=== PATIENT | male | born 1975 | race African-American/Black ===

== ENCOUNTER 2016-11-19 12:32 | Observation (INO) | payer SELFPAY ==
[2016-11-19] VITALS (7 sets, daily range): BP systolic 104–128; BP diastolic 70–81; PULSE 54–95; RESP 16–20; TEMP 97.9–98.3; O2SAT 96–100
[~2016-11-19] VITALS: Ht 177.8 cm; Wt 75.0 kg
--- NOTE | 2016-11-19 12:38 | PD ---
Physical Exam Time Seen by Provider: 12:37 Narrative 41 y/o male presents for evaluation of a syncopal event today. Associated squeezing chest pain prior to the event. Vital signs reviewed. Seen at triage desk. Awaiting bed placement. Data Data Last Documented VS Vital Signs Date Time Temp Pulse Resp B/P Pulse Ox O2 Delivery O2 Flow Rate FiO2 11/19/16 12:35 98.3 95 17 120/70 99 MDM Medical Record Reviewed: Yes Supervised Visit with ERNESTO: No Scripts No Active Prescriptions or Reported Meds Boy Barcenas November 19, 2016 12:38
[2016-11-19] MEDS ORDERED: SODIUM CHLORIDE 0.9% FLUSH 10 ML FLUSH IVF PRN (13:30)
--- NOTE | 2016-11-19 13:33 | PD ---
HPI Chief Complaint: Syncope/Near-Syncope Time Seen by Provider: 13:29 Travel History International Travel<30 days: No Contact w/Intl Traveler<30days: No Traveled to known affect area: No History of Present Illness HPI Patient comes in complaining of a syncopal episode that occurred was at work. Patient states he was sitting on on a brick wall approximately 2 feet off the ground when he felt a pressure/squeezing in his chest and he woke up on the ground. This was witnessed by coworkers. Patient has anything like this in the past. Denies any known heart disease or other medical problems. Patient does report that he does smoke and drink alcohol and over the weekend did a line of cocaine. Patient denies doing drugs on a regular basis. Patient denies taking anything for this. Denies being on any blood thinners. Patient reports the squeezing pain in his chest comes and goes. Patient reports associated shortness of breath squeezing pain comes and having a headache since waking up from initial syncopal episode. Denies any dizziness, nausea, vomiting , change in vision, neck pain, numbness or tingling anywhere, abdominal pain, or fevers. PFSH Past Medical History Asthma: Yes Blood Disorders: No Cancer: No Cardiovascular Problems: No Diminished Hearing: No Endocrine: No Gastrointestinal Disorders: Yes (GI BLEED) Genitourinary: No Hypertension: Yes (diag every time in hosp not on meds) Immune Disorder: No Implanted Vascular Access Dvce: No Musculoskeletal: No Neurologic: No Reproductive: No Immunizations Current: No Pancreatitis: Yes Tetanus Vaccination: > 5 Years Influenza Vaccination: No Past Surgical History Surgical History: No Previous Surgery Tonsillectomy: Yes Other Surgery: No Social History Alcohol Use: Yes Tobacco Use: Yes (1 pack a day) Substance Use: Yes (cocaine this past sat 11/15/16) Allergies-Medications (Allergen,Severity, Reaction): Coded Allergies: No Known Allergies (Verified , 11/19/16) Reported Meds & Prescriptions Reported Meds & Active Scripts Active No Active Prescriptions or Reported Medications Review of Systems Except as stated in HPI: all other systems reviewed are Neg Physical Exam Narrative GENERAL: Well-developed, well nourished, in no acute distress, and non-ill appearing. SKIN: Focused skin assessment warm and dry. HEAD: Atraumatic. Normocephalic. EYES: Pupils equal and round. EOMI. No scleral icterus. No injection or drainage. ENT: No nasal bleeding or discharge. Mucous membranes pink and moist. NECK: Trachea midline. No JVD. Supple. No nuclear rigidity. CARDIOVASCULAR: Regular rate and rhythm. No murmur appreciated. RESPIRATORY: No accessory muscle use. No respiratory distress. Clear to auscultation. Breath sounds equal bilaterally. MUSCULOSKELETAL: No obvious deformities. No clubbing. No cyanosis. No edema. Full range of motion. NEUROLOGICAL: Awake and alert. No obvious cranial nerve deficits. Motor grossly within normal limits. Normal speech. PSYCHIATRIC: Appropriate mood and affect; insight and judgment normal. Data Data Last Documented VS Vital Signs Date Time Temp Pulse Resp B/P Pulse Ox O2 Delivery O2 Flow Rate FiO2 11/19/16 14:51 72 20 104/71 99 Room Air 11/19/16 12:35 98.3 Orders Electrocardiogram (11/19/16 ) Basic Metabolic Panel (Bmp) (11/19/16 13:26) Complete Blood Count With Diff (11/19/16 13:26) Magnesium (Mg) (11/19/16 13:26) Ckmb (Isoenzyme) Profile (11/19/16 13:26) Troponin I (11/19/16 13:26) Act Partial Throm Time (Ptt) (11/19/16 13:26) Prothrombin Time / Inr (Pt) (11/19/16 13:26) Chest, Single Ap (11/19/16 13:26) Ct Brain W/O Iv Contrast(Rout) (11/19/16 13:26) Ecg Monitoring (11/19/16 13:26) Iv Access Insert/Monitor (11/19/16 13:26) Oximetry (11/19/16 13:26) Sodium Chloride 0.9% Flush (Ns Flush) (11/19/16 13:30) D-Dimer (11/19/16 13:58) CKMB (11/19/16 13:37) CKMB% (11/19/16 13:37) Aspirin Chew (Aspirin Chew) (11/19/16 15:30) Admit Order (Ed Use Only) (11/19/16 15:53) Labs Laboratory Tests Test 11/19/16 13:37 White Blood Count 2.9 TH/MM3 Red Blood Count 4.34 MIL/MM3 Hemoglobin 14.1 GM/DL Hematocrit 41.2 % Mean Corpuscular Volume 95.0 FL Mean Corpuscular Hemoglobin 32.4 PG Mean Corpuscular Hemoglobin 34.1 % Concent Red Cell Distribution Width 14.0 % Platelet Count 208 TH/MM3 Mean Platelet Volume 7.7 FL Neutrophils (%) (Auto) 50.8 % Lymphocytes (%) (Auto) 39.1 % Monocytes (%) (Auto) 7.1 % Eosinophils (%) (Auto) 2.5 % Basophils (%) (Auto) 0.5 % Neutrophils # (Auto) 1.5 TH/MM3 Lymphocytes # (Auto) 1.1 TH/MM3 Monocytes # (Auto) 0.2 TH/MM3 Eosinophils # (Auto) 0.1 TH/MM3 Basophils # (Auto) 0.0 TH/MM3 CBC Comment DIFF FINAL Differential Comment Prothrombin Time 10.4 SEC Prothromb Time International 0.9 RATIO Ratio Activated Partial 23.4 SEC Thromboplast Time D-Dimer Quantitative (PE/DVT) LESS THAN 0.19 MG/L FEU Sodium Level 143 MEQ/L Potassium Level 4.3 MEQ/L Chloride Level 111 MEQ/L Carbon Dioxide Level 25.5 MEQ/L Anion Gap 7 MEQ/L Blood Urea Nitrogen 8 MG/DL Creatinine 0.98 MG/DL Estimat Glomerular Filtration 102 ML/MIN Rate Random Glucose 75 MG/DL Calcium Level 9.3 MG/DL Magnesium Level 2.5 MG/DL Total Creatine Kinase 371 U/L Creatine Kinase MB 2.3 NG/ML Creatine Kinase MB % 0.6 % Troponin I LESS THAN 0.02 NG/ML MDM Medical Decision Making Medical Screen Exam Complete: Yes Emergency Medical Condition: Yes Differential Diagnosis Acute coronary syndrome, atypical chest pain, syncope, PE, pneumonia, electrolyte abnormality, dehydration, other Narrative Course Patient was seen and examined. Initial laboratory radiology studies were obtained and reviewed. Patient is given a dose of aspirin. Discussed patient with Dr. Heck, recommends place patient on observation for further evaluation. Discussed all findings and plan care of with patient, who was agreeable for admission. All questions were answered. Patient was stable throughout ED course. Physician Communication Physician Communication [id number] Patino, who feels patient should be placed in the chest pain center. Diagnosis Primary Impression: Chest pain Qualified Code: R07.9 - Chest pain, unspecified type Admitting Information Admitting Physician Requests: Observation Scripts No Active Prescriptions or Reported Meds Condition: Stable Edwin Cruz November 19, 2016 13:33 Edwin Cruz November 19, 2016 13:33
[2016-11-19 13:55] LABS: AUTOMATED NEUTROPHIL # 1.5 TH/MM3 (1.8-7.7); BASOPHIL % 0.5 % (0.0-2.0); EOSINOPHIL # 0.1 TH/MM3 (0-0.4); EOSINOPHIL % 2.5 % (0.0-4.0); HEMATOCRIT 41.2 % (39.0-51.0); HEMO FLAGS DIFF FINAL; LYMPH % 39.1 % (9.0-44.0); LYMPHOCYTE # 1.1 TH/MM3 (1.0-4.8); MEAN CORPUSCULAR HEMOGLOBIN 32.4 PG (27.0-34.0); MEAN CORPUSCULAR HGB CONC 34.1 % (32.0-36.0); MONO % 7.1 % (0.0-8.0); NEUT % 50.8 % (16.0-70.0); PLATELET COUNT 208 TH/MM3 (150-450); RED BLOOD COUNT 4.34 MIL/MM3 (4.50-5.90); WHITE BLOOD COUNT 2.9 TH/MM3 (4.0-11.0)
--- NOTE | 2016-11-19 13:56 | RADRPT ---
EXAM DATE/TIME: 11/19/2016 13:34 [facility] COMPARISON: CHEST PA & LAT, December 18, 2015, 12:28. INDICATIONS : Short of breath, chest tightness. MEDICAL HISTORY : Myocardial infarction. SURGICAL HISTORY : Coronary artery stent. ENCOUNTER: Initial ACUITY: 2 days PAIN SCORE: 4/10 LOCATION: Bilateral chest FINDINGS: A single view of the chest demonstrates the lungs to be symmetrically aerated without evidence of mas s, infiltrate or effusion. The cardiomediastinal contours are unremarkable. Osseous structures are intact. CONCLUSION: 1. No acute cardiopulmonary findings Mark Lubin MD on November 19, 2016 at 13:52 Board Certified Radiologist. This report was verified electronically.
[2016-11-19 14:04] LABS: APTT (PATIENT) 23.4 SEC (24.3-30.1); INTERNATIONAL NORMALIZED RATIO 0.9 RATIO; PROTHROMBIN TIME - PATIENT 10.4 SEC (9.8-11.6)
[2016-11-19 14:17] LABS: ANION GAP 7 MEQ/L (5-15); BICARBONATE 25.5 MEQ/L (21.0-32.0); BLOOD UREA NITROGEN 8 MG/DL (7-18); CHLORIDE 111 MEQ/L (98-107); GLOMERULAR FILTRATION RATE 102 ML/MIN (>89); MAGNESIUM 2.5 MG/DL (1.5-2.5); POTASSIUM 4.3 MEQ/L (3.5-5.1); SODIUM (NA) 143 MEQ/L (136-145)
[2016-11-19 14:20] LABS: CREATINE KINASE 371 U/L (39-308)
[2016-11-19 14:33] LABS: CKMB 2.3 NG/ML (0.5-3.6)
--- NOTE | 2016-11-19 15:12 | RADRPT ---
EXAM DATE/TIME: 11/19/2016 14:42 [facility] COMPARISON: CT BRAIN W/O CONTRAST, February 14, 2014, 10:46. INDICATIONS : Syncope RADIATION DOSE: 46.62 CTDIvol (mGy) MEDICAL HISTORY : Hypertension. SURGICAL HISTORY : None. ENCOUNTER: Initial ACUITY: 1 day PAIN SCALE: 5/10 LOCATION: Bilateral cranial TECHNIQUE: Multiple contiguous axial images were obtained of the head. Using automated exposure control and adj ustment of the mA and/or kV according to patient size, radiation dose was kept as low as reasonably a chievable to obtain optimal diagnostic quality images. FINDINGS: CEREBRUM: The ventricles are normal for age. No evidence of midline shift, mass lesion, hemorrhage or acute in farction. No extra-axial fluid collections are seen. POSTERIOR FOSSA: The cerebellum and brainstem are intact. The 4th ventricle is midline. The cerebellopontine angle i s unremarkable. EXTRACRANIAL: The visualized portion of the orbits is intact. SKULL: The calvaria is intact. No evidence of skull fracture. CONCLUSION: Normal examination. Rolando Titus MD on November 19, 2016 at 15:09 Board Certified Radiologist. This report was verified electronically.
[2016-11-19] MEDS ORDERED: ASPIRIN 81 MG CHEW TAB PO ONE (15:30)
[2016-11-19] MEDS ORDERED: NITROGLYCERIN 0.4 MG SL 25 TABS/BTL SL PRN (16:15)
[2016-11-19] MEDS ORDERED: ACETAMINOPHEN 500 MG CPLT PO PRN (16:15)
[2016-11-19] MEDS ORDERED: ONDANSETRON HCL 4 MG/2 ML VIAL IV PRN (16:15)
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
[2016-11-19] MEDS: KETOROLAC TROMETHAMINE 30 MG/ML (IVP) VIAL IV PUSH SCH ×2 (18:27→23:44)
[2016-11-19 19:03] LABS: CREATINE KINASE 342 U/L (39-308)
[2016-11-19 19:15] LABS: CKMB 2.2 NG/ML (0.5-3.6)
[2016-11-19] MEDS: SODIUM CHLORIDE 0.9% FLUSH 10 ML FLUSH IV FLUSH SCH (20:54)
[2016-11-19 21:56] LABS: CREATINE KINASE 337 U/L (39-308)
[2016-11-19 22:08] LABS: CKMB 2.4 NG/ML (0.5-3.6)
[2016-11-20] VITALS: PULSE 60
[2016-11-20 00:21] VITALS: BP 112/69; PULSE 67; RESP 18; TEMP 98.6; O2SAT 95
[2016-11-20 04:00] VITALS: PULSE 48
[2016-11-20 04:43] VITALS: BP 113/80; PULSE 83; RESP 18; TEMP 98.6; O2SAT 97
[2016-11-20] MEDS: KETOROLAC TROMETHAMINE 30 MG/ML (IVP) VIAL IV PUSH SCH (06:11)
[2016-11-20 08:46] VITALS: BP 118/78; PULSE 46; RESP 14; TEMP 98; O2SAT 100
[2016-11-20] MEDS ORDERED: ASPIRIN 325 MG TAB PO SCH (09:00)
[2016-11-20] MEDS: SODIUM CHLORIDE 0.9% FLUSH 10 ML FLUSH IV FLUSH SCH (09:12)
--- NOTE | 2016-11-20 11:03 | EKG ---
Date Performed: 11/19/2016 Time Performed: 16:46:47 PTAGE: 41 years EKG: SINUS BRADYCARDIA WITH SINUS ARRHYTHMIA WITH FIRST DEGREE AV BLOCK ABNORMAL ECG Since PREVIOUS TRACING , no significant change noted DOCTOR: Mushtaq Peck Interpretating Date/Time 11/20/2016 11:02:12
--- NOTE | 2016-11-20 11:03 | EKG ---
Date Performed: 11/19/2016 Time Performed: 12:40:37 PTAGE: 41 years EKG: Sinus rhythm BORDERLINE RIGHT AXIS DEVIATION BORDERLINE ECG PREVIOUS TRACING : 12/18/2015 11.55 Since previous tracing, no significant change noted DOCTOR: Mushtaq Peck Interpretating Date/Time 11/20/2016 11:02:47
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
--- NOTE | 2016-11-20 15:19 | TR ---
Date Performed: 11/20/2016 Time Performed: 11:48:24 DOCTOR: Mushtaq Peck DRUG LIST: CLINICAL HISTORY: CHEST PAIIN REASON FOR TEST: REASON FOR ENDING: OBSERVATION: CONCLUSION: TATYANA PROTOCOL. NO CP. TEST STOPPED AFTER EXCEEDING GOAL HR SECONDARY TO SOB AND LEG FATIGUE. GOOD EXERCISE TOLERANCE.Maximum OW=020 % Max HR Achieved=89.0% Maximum AL=845/70 Total Exer cise Time=11:01 COMMENTS: Conclusion: Normal treadmill exercise. No evidence of ischemia.
--- NOTE | 2016-11-24 13:00 | EKG ---
Date Performed: 11/20/2016 Time Performed: 08:17:18 PTAGE: 41 years EKG: SINUS BRADYCARDIA WITH FIRST DEGREE AV BLOCK BORDERLINE RIGHT AXIS DEVIATION ABNORMAL ECG PREVIOUS TRACING : 11/19/2016 16.46 Since previous tracing, no significant change noted DOCTOR: Mushtaq Peck Interpretating Date/Time 11/24/2016 12:59:31
== END 2016-11-20 14:33 | disposition home or self-care (01) ==
LOC: NEPC 12:32 → NEDA 15:55 → NEPGCP 17:07
PROVIDERS: ADMIT Internal Medicine Cardiovascular Disease; ATTEND Internal Medicine Cardiovascular Disease
DX: R07.89 Other chest pain (principal); R55 Syncope and collapse; F14.90 Cocaine use, unspecified, uncomplicated; J45.909 Unspecified asthma, uncomplicated; I10 Essential (primary) hypertension; F17.200 Nicotine dependence, unspecified, uncomplicated; Z82.49 Family history of ischemic heart disease and other diseases of the circulatory system
CPT/HCPCS: 70450; 71010; 80048; 82550; 82552; 83735; 84484; 85025; 85379; 85610; 85730; 93005; 93017; 99285; G0378; J1885

== ENCOUNTER 2017-01-17 03:14 | Emergency (ER) | payer SELFPAY ==
[~2017-01-17] VITALS: Ht 180.3 cm; Wt 72.0 kg
[2017-01-17 03:16] VITALS: BP 130/88; PULSE 93; TEMP 98.6; O2SAT 97
[2017-01-17] MEDS ORDERED: TETANUS/DIPHTHERIA TOXOID ADULT 0.5 ML VIAL IM ONE (04:30)
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
[2017-01-17] MEDS ORDERED: ACETAMINOPHEN/HYDROcodone 325 MG/5 MG TAB PO ONE (05:15)
[2017-01-17] MEDS ORDERED: LIDOCAINE HCL 1% PF 30 ML VIAL INFIL ONE (05:15)
[2017-01-17] MEDS ORDERED: CEPH-460 PO (05:59)
[2017-01-17] MEDS ORDERED: CEPHALEXIN MONOHYDRATE 500 MG CAP PO ONE (06:00)
== END 2017-01-17 06:23 | disposition home or self-care (01) ==
LOC: NEPC 03:14
DX: S01.21XA Laceration without foreign body of nose, initial encounter (principal); S09.90XA Unspecified injury of head, initial encounter; S02.2XXA Fracture of nasal bones, initial encounter for closed fracture; S40.812A Abrasion of left upper arm, initial encounter; S40.811A Abrasion of right upper arm, initial encounter; S80.812A Abrasion, left lower leg, initial encounter; S80.811A Abrasion, right lower leg, initial encounter; I10 Essential (primary) hypertension; F17.200 Nicotine dependence, unspecified, uncomplicated; Y08.89XA Assault by other specified means, initial encounter; Z23 Encounter for immunization; Z87.09 Personal history of other diseases of the respiratory system; Z87.19 Personal history of other diseases of the digestive system
CPT/HCPCS: 12011; 70450; 70486; 72125; 90471; 90714

== ENCOUNTER 2017-01-25 12:54 | Emergency (ER) | payer SELFPAY ==
[~2017-01-25 12:54] MED LIST: CEPH-460 PO
[2017-01-25 12:59] VITALS: BP 125/61; PULSE 62; RESP 14; TEMP 98.1; O2SAT 100
--- NOTE | 2017-01-25 13:13 | PD ---
HPI Chief Complaint: Wound/Suture/Staple Re-Check Time Seen by Provider: 13:13 Travel History International Travel<30 days: No Contact w/Intl Traveler<30days: No Traveled to known affect area: No History of Present Illness HPI 41-year-old male presents to the emergency Department requesting suture removal from his nose. Sutures in place 6-7 days. Denies fever, vomiting. Denies drainage, erythema, edema from the site. Has no other medical complaints. No other modifying factors or associated signs and symptoms. PFSH Past Medical History Asthma: Yes Blood Disorders: No Cancer: No Cardiovascular Problems: No Diabetes: No Diminished Hearing: No Endocrine: No Gastrointestinal Disorders: Yes (GI BLEED) Genitourinary: No Hypertension: Yes (diag every time in hosp not on meds) Immune Disorder: No Implanted Vascular Access Dvce: No Musculoskeletal: No Neurologic: No Reproductive: No Immunizations Current: No Pancreatitis: Yes Past Surgical History Tonsillectomy: Yes Other Surgery: No Social History Alcohol Use: Yes Tobacco Use: Yes (1 pack a day) Substance Use: Yes (cocaine this past sat 11/15/16) Allergies-Medications (Allergen,Severity, Reaction): Coded Allergies: No Known Allergies (Verified , 01/17/17) Reported Meds & Prescriptions Reported Meds & Active Scripts Active No Active Prescriptions or Reported Medications Review of Systems Except as stated in HPI: all other systems reviewed are Neg Physical Exam Narrative GENERAL: Well-nourished, well-developed male patient, in no acute distress SKIN: Warm and dry. Wound to nasal bridge just between the eyes is well approximated with sutures intact without erythema, edema, drainage. No signs of infection. HEAD: Atraumatic. Normocephalic. EYES: Pupils equal and round. No scleral icterus. No injection or drainage. ENT: Mucosa pink and moist. Airway patent. NECK: Trachea midline. CARDIOVASCULAR: Regular rate. RESPIRATORY: No accessory muscle use. GASTROINTESTINAL: Flat. MUSCULOSKELETAL: No obvious deformities. No clubbing. No cyanosis. No edema. NEUROLOGICAL: Awake and alert. Oriented 3. No obvious cranial nerve deficits. Motor grossly within normal limits. Normal speech. PSYCHIATRIC: Appropriate mood and affect; insight and judgment normal. Data Data Last Documented VS Vital Signs Date Time Temp Pulse Resp B/P Pulse Ox O2 Delivery O2 Flow Rate FiO2 01/25/17 12:59 98.1 62 14 125/61 100 [facility] Medical Decision Making Medical Screen Exam Complete: Yes Emergency Medical Condition: Yes Medical Record Reviewed: Yes Differential Diagnosis Suture removal, staple removal, medical clearance, wound recheck Narrative Course 41-year-old male presents for suture removal to laceration of his nose. The wound site is without signs of infection. Sutures removed. Patient tolerated well. Instructed patient to follow up with primary care provider. Patient verbalizes understanding and agreement with treatment plan. Patient is medically cleared and stable for discharge. Discussed reasons to return to the emergency department. Patient agrees with treatment plan. The patients vital signs are stable and the patient is stable for outpatient follow-up and treatment. Patient discharged home, stable and in no acute distress. Diagnosis Primary Impression: Encounter for removal of sutures Referrals: Primary Care Physician Patient Instructions: General Instructions, Stitches Removal (ED) Additional Instructions: Follow-up with primary care provider Return to the emergency department immediately with worsening of symptoms Med/Other Pt SpecificInfo: No Meds Exist/No RX given Scripts No Active Prescriptions or Reported Meds Disposition: 01 DISCHARGE HOME Condition: Stable Mariely Rodriguez [facility] Jan 25, 2017 13:13
== END 2017-01-25 13:26 | disposition home or self-care (01) ==
LOC: NEPD 12:54
DX: Z48.02 Encounter for removal of sutures (principal); J45.909 Unspecified asthma, uncomplicated; I10 Essential (primary) hypertension; K85.90 Acute pancreatitis without necrosis or infection, unspecified; F17.200 Nicotine dependence, unspecified, uncomplicated
CPT/HCPCS: 99281